=== PATIENT | female | born 1980 | race Caucasian/White ===

== ENCOUNTER → 2016-11-15 | Outpatient (CLI) | payer OTHER ==
[~2016-11-15] MED LIST: ACET-749 PO; MTR600X PO; PRENTAB26 PO
[2016-11-15 12:09] LABS: HEMATOCRIT 35.6 % (37-47)
[2016-11-15 12:48] LABS: URINE APPEARANCE CLEAR (CLEAR); URINE BILIRUBIN NEG (NEG); URINE COLOR YELLOW; URINE NITRITE NEG (NEG); URINE SPECIFIC GRAVITY 1.003 (1.000-1.030); UROBILINOGEN NEG (NEG)
[2016-11-15 12:54] LABS: MANUAL MICROSCOPIC REQUIRED? NO; REVIEW REQ? NO
[2016-11-15 13:11] LABS: GTGD 50 Grams
== END | disposition home or self-care (01) ==
LOC: C.LAB1850 10:29
PROVIDERS: ATTEND Obstetrics & Gynecology
DX: O09.523 Supervision of elderly multigravida, third trimester (principal); Z3A.00 Weeks of gestation of pregnancy not specified

== ENCOUNTER → 2017-01-17 | Outpatient (CLI) | payer OTHER | END | disposition home or self-care (01) | LOC: C.LABSPEC 10:37 | PROVIDERS: ATTEND Obstetrics & Gynecology | DX: O09.523 Supervision of elderly multigravida, third trimester (principal) ==

== ENCOUNTER 2017-01-31 20:34 | Inpatient (IN) | payer OTHER ==
[~2017-01-31] VITALS: Ht 165.1 cm; Wt 63.5 kg
[2017-01-31] MEDS ORDERED: LACTATED RINGER'S 1000ML 1,000 ML IV SCH (21:18)
[2017-01-31] MEDS ORDERED: LACTATED RINGER'S 1000ML 1,000 ML IV PRN (21:18)
[2017-01-31 21:45] LABS: HEMATOCRIT 35.9 % (37-47); MEAN CELL VOLUME 85.9 fL (80-100); MEAN CORPUSCULAR HEMOGLOBIN 28.7 pg (25-34); MEAN CORPUSCULAR HGB CONC 33.4 g/dl (32-36); MEAN PLATELET VOLUME 10.9 fL (7.4-10.4); PLATELET COUNT 260 K/uL (130-400); RED BLOOD COUNT 4.18 M/uL (4.2-5.4); WHITE BLOOD COUNT 11.22 K/uL (4.8-10.8)
[2017-01-31 21:54] VITALS: Ht 165.1 cm; Wt 63.5 kg
[2017-01-31] MEDS ORDERED: LACTATED RINGER'S 1000ML 500 ML IV PRN (22:34)
[2017-01-31] MEDS ORDERED: OXYTOCIN 30 UNITS/500ML NSS IV PRN (22:45)
[2017-01-31] MEDS ORDERED: BUPIVACAINE 0.25% 30 ML VIAL ONE (23:31)
[2017-01-31] MEDS ORDERED: EpHEDrine SULFATE INJ 50 MG/ML AMP ONE (23:31)
[2017-01-31] MEDS ORDERED: FENTANYL CITRATE INJ 50 MCG/1 ML 2 ML VIAL ONE (23:31)
[2017-01-31] MEDS ORDERED: FENTANYL 2MCG/ML ROPIV 1.25MG/ML 100ML BAG EPI ONE (23:32)
[2017-02-01] MEDS ORDERED: LACTATED RINGER'S 1000ML 500 ML IV PRN (00:33)
[2017-02-01] MEDS ORDERED: NALOXONE HCL INJ 1 MG in SODIUM CHLORIDE 0.9% 1000ML 1,000 ML IV PRN (00:33)
[2017-02-01] MEDS ORDERED: FENTANYL 2MCG/ML ROPIV 1.25MG/ML 100ML BAG EPI PRN (00:45)
[2017-02-01] MEDS ORDERED: NALBUPHINE HCL INJ 10 MG/ML AMP IV PRN (00:45)
[2017-02-01] MEDS ORDERED: ONDANSETRON INJ 2 MG/ML 2 ML VIAL IV PRN (00:45)
[2017-02-01] MEDS ORDERED: NALOXONE HCL INJ 0.4 MG/1 ML VIAL/CARP IV PRN (00:45)
[2017-02-01] MEDS ORDERED: EpHEDrine SULFATE INJ 50 MG/ML AMP IV PRN (00:45)
[2017-02-01] MEDS ORDERED: DiphenhydrAMINE HCL 50 MG/ML VIAL IV PRN (00:45)
[2017-02-01] MEDS ORDERED: OXYTOCIN 30 UNITS/500ML NSS IV PRN (07:00)
[2017-02-01] MEDS ORDERED: HYDROCORTISONE ACETATE 25 MG SUPP PR PRN (07:00)
[2017-02-01] MEDS ORDERED: SUPERCREAM 0.870 % 15GM JAR EXT PRN (07:00)
[2017-02-01] MEDS ORDERED: LANOLIN OINT EXT PRN ×2 (07:00)
[2017-02-01] MEDS ORDERED: BENZOCAINE 20% AER SPR 82.5 GM CAN EXT PRN (07:00)
[2017-02-01] MEDS ORDERED: ACETAMINOPHEN 325 MG TAB PO PRN (07:00)
[2017-02-01] MEDS ORDERED: OXYCODONE/ACETAMINOPHEN 5-325 TAB PO PRN (07:00)
--- NOTE | 2017-02-01 07:59 | Anesthesia Procedure Note ---
Anesthesia Epidural Removal Nt Date & Time February 01, 2017 at 07:59 Vital Signs Pain Intensity: 1 Notes Mental Status: alert / awake / arousable, participated in evaluation Nausea / Vomiting: adequately controlled Pain: adequately controlled Airway Patency, RR, SpO2: stable & adequate BP & HR: stable & adequate Hydration State: stable & adequate Neuraxial Anesthesia: was administered Anesthetic Complications: no major complications apparent, pt satisfied with anesthetic care Epidural: removed without complications, with tip intact
--- NOTE | 2017-02-01 08:50 | DELIVERY SUMMARY ---
DATE OF OPERATION: 02/01/2017 VAGINAL DELIVERY SUMMARY DATE OF DELIVERY: 02/01/2017. DELIVERING SURGEON: Dr. Francisco. ANESTHESIA: Epidural. DELIVERY DIAGNOSES: 1. 36-year-old G2, P1-0-0-1 at 38 week 4 days. 2. Premature rupture of membranes. 3. Advanced maternal age. POSTDELIVERY DIAGNOSES: 1. 36-year-old G2, P1-0-0-1 at 38 week 4 days. 2. Premature rupture of membranes. 3. Advanced maternal age. PROCEDURES: Spontaneous vaginal delivery and repair of second degree perineal laceration. ESTIMATED BLOOD LOSS: 400 mL. Nuchal cord x1. DESCRIPTION OF DELIVERY: The patient progressed to complete and spontaneously vaginally delivered a viable male with Apgars of 8 and 9 in the left occiput anterior position with a tight nuchal cord around the neck. This was not able to be reduced easily and therefore baby was delivered through. The baby was warmed and dried and spontaneous cry was heard. The cord was doubly clamped and cut and the baby was handed off the awaiting pediatrics team due to maternal request. A cord segment was obtained for cord gasses. Cord blood was obtained. The placenta was then delivered spontaneously intact with a 3-vessel cord. The uterus became firm. The uterus and vagina were swept of all clots and debris. The cervix, vagina and perineum were inspected and a second degree laceration was noted and repaired in standard fashion with 3-0 Vicryl. Pitocin was given and excellent hemostasis was noted. The patient tolerated the delivery well as did the baby. Sponge, needle and instrument counts were correct x2 at the conclusion of the delivery. I attest to the content of the Intraoperative Record and any orders documented therein. Any exceptio ns are noted below.
[2017-02-01 09:35] VITALS: BP 138/77; PULSE 84; TEMP 36.7; O2SAT 100
[2017-02-01] MEDS: DOCUSATE SODIUM 100 MG CAP PO SCH ×2 (09:35→20:13)
[2017-02-01] MEDS: IBUPROFEN 600 MG TAB PO PRN ×2 (10:45→19:24)
[2017-02-01 12:20] VITALS: BP 118/82; PULSE 69; TEMP 36.4; O2SAT 99
[2017-02-01 15:30] VITALS: BP 134/88; PULSE 62; TEMP 36.5
[2017-02-01 20:00] VITALS: BP 126/79; PULSE 67; TEMP 36.4
[2017-02-01 23:35] VITALS: BP 120/70; PULSE 65; TEMP 36.5; TEMP 36.7; O2SAT 99
[2017-02-02 03:45] VITALS: BP 107/66; PULSE 63; TEMP 36.6; O2SAT 98
--- NOTE | 2017-02-02 07:16 | Progress Note ---
Subjective February 02, 2017. Subjective conversation w/ patient, physical exam Ambulation: ambulating normally Voiding: no voiding problems Passing Gas: Yes Diet Tolerance: Regular Diet Lochia: Moderate Feeding Type: Breast Feeding Review of Systems Constitutional: No chills, No fever Respiratory: No cough Cardiac: No chest pain Breast: No breast lump Abdomen: No nausea, No vomiting Objective Vital Signs Date Time Temp Pulse Resp B/P Pulse Ox O2 Delivery O2 Flow Rate FiO2 02/02/17 03:45 36.6 63 18 107/66 98 Room Air 02/01/17 23:35 99 Room Air 02/01/17 23:35 36.7 65 18 120/70 99 Room Air 02/01/17 20:00 36.4 67 20 126/79 Room Air 02/01/17 15:30 Room Air 02/01/17 15:30 36.5 62 20 134/88 Room Air 02/01/17 12:20 36.4 69 18 118/82 99 Room Air 02/01/17 09:35 36.7 84 18 138/77 100 Room Air 02/01/17 09:35 100 Room Air Physical Exam General Appearance: WELL-APPEARING, NO APPARENT DISTRESS Respiratory/Chest: no respiratory distress, no accessory muscle use Cardiovascular: no edema Abdomen: non tender, soft Fundus: Firm Extremities: no calf tenderness Laboratory Results Last 24 Hours Test 02/02/17 04:44 Assessment and Plan Post- Day#: 1 Continue Routine Care: Patient desires d/c home today. INstructions reviewed.
--- NOTE | 2017-02-02 07:19 | Discharge Instructions ---
Discharge Instructions Date of Service February 02, 2017. Admission Reason for Admission: PROM Discharge Discharge Diagnosis / Problem: Vaginal delivery Discharge Goals Goal(s): Routine recovery after delivery Activity Recommendations Activity Limitations: per Instructions/Follow-up section . Instructions / Follow-Up Instructions / Follow-Up ACTIVITY RECOMMENDATIONS: * Gradual return to full activity over the next 2-3 weeks. * No lifting - nothing heavier than baby over the next 2-3 weeks. * Do not engage in vigorous exercise, sexual activity or sports until cleared by your physician. * Do not drive or operate any motorized equipment until cleared by your physician. * You may shower/bathe daily. MEDICATIONS: For discomfort or pain, you may use Acetaminophen (Tylenol), Ibuprofen (Advil), or Naproxen (Aleve) following the package directions. For constipation you may use Colace following the package directions. BREAST CARE: If you are not breast feeding: * Wear a supportive bra 24 hours a day for one to two weeks. * Avoid stimulating your breasts and nipples as much as possible during the first few weeks after delivery. * When taking a shower, have the warm water hit your back, not breasts. * When your breasts feel full, apply ice packs. Usually three to four times a day helps ease the discomfort. * Take a mild pain medication (Tylenol / Motrin) when you are uncomfortable. If breast feeding: * Use breast milk to lubricate nipples. Lansinoh cream may be used for sore nipples. You do not need to remove cream prior to breast feeding. If using a different brand of cream, check the label for directions regarding removal of cream prior to nursing. * Wear a supportive bra. * If having problems with breasts or breast feeding, call a care consultant or your health care provider. EPISIOTOMY CARE: After delivery, if you have an episiotomy (stitches), the following steps will ease discomfort and aid healing. * For the first 24 hours after delivery, place ice packs next to your episiotomy to help reduce swelling. * After the first 24 hour-period, sitz baths, either portable or in the tub, are suggested. A shower with a shower arm sprayed over the episiotomy may be comforting. * [place] care should be done after each voiding and bowel movement. Squirt warm water from a plastic bottle over the perineum (region of the body between the anus and urinary opening) and pat dry. * Use Dermoplast to ease discomfort. Shake container. [place] directly over the episiotomy. Place a Tucks on a clean sanitary pad next to your episiotomy. SPECIAL CARE INSTRUCTIONS: When you are discharged from the hospital, it is important for you to follow the instructions listed below: * During the first week at home, you should be able to care for yourself and your baby. In addition, the usual light household activities are encouraged. * Limit your activities to the way you feel. Do not try to clean the house or move furniture. Be sensible. * If you actively engage in sports and have done so up until the time of your delivery, you may resume these activities as soon as you feel able. This may take up to one month or even longer. Use good judgment. * Continue to take your vitamins for at least six weeks after the of your baby. * Your diet need not be limited unless you were on a special diet before your delivery. Breast-feeding mothers need around 2500 calories per day and at least 64-80 ounces of fluid per day (8 to 10 glasses). * You should eat foods from the four major food groups. Crash diets or fad diets are to be avoided. Eating lean meats, fresh fruits and vegetables, low-fat dairy products, high fiber foods and a regular exercise program, will help you get back to your pre- weight without putting your health at risk. * Constipation is sometimes a problem after delivery. Take a mild laxative as needed. If breast feeding, Milk of Magnesia is acceptable to use. You may use a suppository or Fleets enema if no episiotomy. * A daily shower or tub bath is suggested. Be sure to thoroughly and gently dry the perineum. * A bloody vaginal discharge will usually continue until around four weeks post . A small amount of bleeding may continue for as long as six weeks. Vaginal discharge changes from the bright red bleeding after delivery to pink then brownish and finally yellowish-pink before becoming white and disappearing. * Bleeding may increase with activity. Your first period may come in 4-8 weeks. If you are breast feeding, your period may be delayed even longer. * [place] (sex) can begin whenever both you and your partner feel comfortable and do not have any form of genital infection. It is recommended that you wait at least six weeks for internal and external healing to occur. If you have questions, please talk to your health care practitioner. A condom should be used to prevent infection and . * Foreplay, gentle intercourse and lubrication is very important the first several times to prevent pain. A water-based lubricant such as K-Y jelly or Astroglide may be used. * If you have RH negative blood and your baby is RH positive, you will receive RHOGAM by injection prior to discharge. The nurse will give you a card to keep with you that has the date and place that you received RHOGAM after delivery. * During your care, you had a Rubella screen done to check for the presence of rubella antibodies in your blood. If your test was negative, you will receive a Rubella vaccine prior to discharge. This vaccine may cause a fever, soreness at the injection site and flu-like symptoms. If these symptoms persist, notify your health care practitioner. is not advised for one month after a Rubella vaccine. * Verbalizes understanding of car seat law as reviewed with patient nursing. * Car Seat hand-out given and reviewed with patient by nursing. * Shaken baby information reviewed with patient by nursing. Call you doctor if: * Heavy bleeding (saturating several pads an hour) or passing clots the size of your fist. * A fever >101 degrees F (38.3 degrees C) on two occasions four hours apart and /or chills. * Unusual pain in the pelvic or vaginal areas. * "Baby Blues" lasting longer than two weeks. If you have any questions or concerns, call your health care practitioner at . FOLLOW UP VISIT: * Please call the office at to schedule a 6 week examination. It is important you keep this appointment. It is important for you to make arrangements for either yearly or twice yearly check-ups thereafter. Current Hospital Diet Patient's current hospital diet: Regular OB Diet Discharge Diet Recommended Diet: Regular Diet Pending Studies Studies pending at discharge: no Medical Emergencies . Who to Call and When: Medical Emergencies: If at any time you feel your situation is an emergency, please call 911 immediately. . Non-Emergent Contact Non-Emergency issues call your: Primary Care Provider . . "Provider Documentation" section prepared by Macy Sheldon. . VTE Core Measure Inpt VTE Proph given/why not?: Treatment not indicated
[2017-02-02 07:30] VITALS: BP 113/73; PULSE 58; TEMP 36.5; O2SAT 100
[2017-02-02] MEDS: IBUPROFEN 600 MG TAB PO PRN (08:38)
[2017-02-02] MEDS: DOCUSATE SODIUM 100 MG CAP PO SCH (08:38)
[2017-02-02 08:50] LABS: HEMATOCRIT 29.9 % (37-47)
[2017-02-02 12:40] VITALS: BP_DIAS 73; PULSE 58; TEMP 36.5
[2017-02-02] MEDS ORDERED: BISACODYL 5 MG TABEC PO SCH (20:00)
== END 2017-02-02 13:15 | disposition home or self-care (01) | DRG 775 ==
LOC: C.LD 20:34 → C.OPB 20:34 → C.LD 21:20 → C.OPB 21:20 → C.OBG 02-01 09:10
PROVIDERS: ADMIT Obstetrics & Gynecology; ATTEND Obstetrics & Gynecology
PROC: 10E0XZZ Delivery of Products of Conception, External Approach (ICD-10-PCS; principal; 2017-02-01)
PROC: 0KQM0ZZ Repair Perineum Muscle, Open Approach (ICD-10-PCS; principal; 2017-02-01)
DX: O42.02 Full-term premature rupture of membranes, onset of labor within 24 hours of rupture (principal); O09.523 Supervision of elderly multigravida, third trimester; O69.1XX0 Labor and delivery complicated by cord around neck, with compression, not applicable or unspecified; O70.1 Second degree perineal laceration during delivery; Z37.0 Single live birth; Z3A.38 38 weeks gestation of pregnancy